=== PATIENT | female | born 1970 | race Caucasian/White ===

== ENCOUNTER 2020-10-16 08:12 | Day surgery (SDC) | payer OTHER ==
[~2020-10-16 08:12] MED LIST: Midazolam 1 MG/ML 2 ML SDV ONE; Propofol 200 MG/20 ML SDV ONE; fentaNYL 100 MCG/2 ML SDV ONE
[2020-10-16] MEDS ORDERED: Dextrose 5%-Lactated Ringers 1,000 ML IV SCH (09:00)
--- NOTE | 2020-10-22 07:23 | OR ---
DATE OF PROCEDURE: 10/16/2020 SURGEON: Zac Guerrero MD PREOPERATIVE DIAGNOSIS: Indications for screening colonoscopy with positive family history (brother) with colon carcinoma. POSTOPERATIVE DIAGNOSIS: Normal colonoscopic examination. OPERATIVE PROCEDURE: Flexible colonoscopy. ANESTHESIA: IV sedation. INDICATION FOR PROCEDURE: This 50-year-old female referred for screening colonoscopy. She does have a family history of colon carcinoma in her brother. Plan is to do colonoscopy with biopsies and/or polypectomy as indicated. Potential risks including bleeding and perforation were discussed, and the patient wishes to proceed. DETAILS OF PROCEDURE: The patient was taken to operating room and placed in a left lateral decubitus position. IV sedation was administered, after which the initial digital rectal exam was performed and was unremarkable. Colonoscope was passed into the rectum with retroflexion revealing uncomplicated hemorrhoidal columns. Scope was then eventually passed to the cecum. Prep was quite good with only a small amount of liquid stool being present. To that level, no abnormalities were noted, specifically there were no diverticula, no areas of colitis, and no polyps or other signs of neoplasia. The scope was then withdrawn and the above findings reconfirmed, and the procedure was then concluded. Recommendation would be to repeat colonoscopy in 5 years given the positive family history of colon carcinoma. Zac Guerrero MD /[id number]
== END 2020-10-16 11:17 | disposition home or self-care (01) ==
LOC: JP.SDS 08:12
PROVIDERS: ATTEND Surgery
DX: Z12.11 Encounter for screening for malignant neoplasm of colon (principal); Z80.0 Family history of malignant neoplasm of digestive organs; E66.9 Obesity, unspecified; Z68.35 Body mass index [BMI] 35.0-35.9, adult
CPT/HCPCS: 81025; J2250; J2704; J3010; J7121